=== PATIENT | male | born 2000 | race Two or more races ===

== ENCOUNTER 2018-09-15 00:26 | Emergency (ER) | payer OTHER ==
--- NOTE | 2018-09-15 00:33 | EDPHY ---
H & P Time Seen by Provider: 09/15/18 00:31 HPI/ROS: HPI CHIEF COMPLAINT: Hand laceration, right forearm laceration. HISTORY OF PRESENT ILLNESS: This is a 18-year-old male, he states that he was knocking on the window and sustained a laceration to his right hand and right forearm. He has a very small less than <0.5cm laceration to the right index finger. Additionally has TWO 3 cm lacerations mid forearm palmar side. He has otherwise neurovascular intact no other injuries. Bleeding was controlled by EMS. He arrives to the emergency without any complaints. He does report that he had alcohol tonight. States he was knocking on the glass and the glass broke. Past Medical History: Denies Past Surgical History: Denies Social History: Alcohol this evening. Denies drugs or tobacco. Family History: Denies ROS REVIEW OF SYSTEMS: 10 Systems were reviewed and negative with the exception of the elements mentioned in the history of present illness. Exam Constitutional triage nursing summary reviewed, vital signs reviewed, awake/ alert. Eyes normal conjunctivae and sclera, EOMI, PERRLA. HENT normal inspection, atraumatic, moist mucus membranes, no epistaxis, neck supple/ no meningismus, no raccoon eyes. Respiratory clear to auscultation bilaterally, normal breath sounds, no respiratory distress, no wheezing. Cardiovascular rate normal, regular rhythm, no murmur, no edema, distal pulses normal. Gastrointestinal soft, non-tender, no rebound, no guarding, normal bowel sounds, no distension, no pulsatile mass. Genitourinary no CVA tenderness. Musculoskeletal no midline vertebral tenderness, full range of motion, no calf swelling, no tenderness of extremities, no meningismus, good pulses, neurovascularly intact. Skin right upper extremity: Index finger dorsal aspect <0.5 cm laceration, no tendon invovlement, no arterial injury, neurovascular intact full range of motion of the hand and all digits. Additionally has a mid forearm laceration 3 cm palmar side there is neurovascular intact no tendon invovlement. No foreign bodies visualized on exam. Additionally there is a 2nd 3 cm forearm palmar side laceration. No tendon vomit no arterial injury. Neurologic awake, alert and oriented x 3, AAOx3, moves all 4 extremities equally, motor intact, sensory intact, CN II-XII intact, normal cerebellar, normal vision, normal speech. Psychiatric normal mood/affect. Heme/Lymph/Immune no lymphadenopathy. Differential Diagnosis: Includes but is not limited to in a particular order multiple lacerations, soft tissue injury, foreign body of glass,, tendon injury , arterial injury. Medical Decision Making: Plan for this patient x-ray right hand, x-ray right forearm. Rule out foreign bodies. Will clean his wounds copiously irrigate them. Will repair his lacerations. Re-evaluation: Patient reports to me his tetanus shot is up-to-date. Laceration Repair Procedure: Verbal Consent was obtained, Under sterile conditions, The patient had lidocaine with epinephrine used approximately 4ccs to local anesthetize the RIGHT FOREARM 3CM Laceration. The wound was copiously irrigated with sterile fluid, the wound was explored for foreign bodies there were none visualized, the wound was explored with a sterile glove to the base. There are no deep structures involved, including no arterial injury. THREE 5.O PROLENE interrupted Sutures were placed in this patient's laceration. He had good close approximation of the wound edges. He Tolerated this well. Laceration Repair Procedure: Verbal Consent was obtained, Under sterile conditions, The patient had lidocaine with epinephrine used approximately 4ccs to local anesthetize the RIGHT FOREARM 3CM Laceration. The wound was copiously irrigated with sterile fluid, the wound was explored for foreign bodies there were none visualized, the wound was explored with a sterile glove to the base. There are no deep structures involved, including no arterial injury. THREE 5.O PROELENE interrupted Sutures were placed in this patient's laceration. He had good close approximation of the wound edges. He Tolerated this well. Patient declined to have the right index finger laceration repaired. Very small. Good hemostasis. Not gaping. No tendon vomit. Patient understands have sutures removed in 12 days. Keep the wounds clean, dry and intact. Patient's x-rays reviewed the right hand and right forearm negative for trauma. I do not appreciate any foreign bodies. These images were interpreted by myself. Patient's wounds were copiously irrigated and cleaned. Source: Patient, EMS Constitutional: Initial Vital Signs Temperature (C) 36.8 C 09/15/18 00:30 Heart Rate 110 H 09/15/18 00:30 Respiratory Rate 20 09/15/18 00:30 Blood Pressure 132/87 H 09/15/18 00:30 O2 Sat (%) 96 09/15/18 00:30 O2 Delivery Mode Room Air Allergies/Adverse Reactions: No Known Allergies Allergy (Unverified 09/15/18 00:30) Home Medications: Medication Instructions Recorded NK [No Known Home Meds] 09/15/18 Departure - Departure Disposition: Home, Routine, Self-Care Clinical Impression: Arm laceration Qualifiers: Encounter type: initial encounter Laterality: right Qualified Code(s): S41.111A - Laceration without foreign body of right upper arm, initial encounter Finger laceration Qualifiers: Encounter type: initial encounter Finger: index finger Damage to nail status: without damage Foreign body presence: without foreign body Laterality: right Qualified Code(s): S61.210A - Laceration without foreign body of right index finger without damage to nail, initial encounter Condition: Good Instructions: Laceration (ED), Finger Laceration (ED) Additional Instructions: 1. Your sutures need to be removed in 12 days. 2. Please keep your wounds clean, and dry, protected. Pt med clear for usp. Referrals: Patient,NotPresent [Unknown] - As per Instructions
[2018-09-15 01:42] VITALS: BP 135/78
== END 2018-09-15 01:37 | disposition home or self-care (01) ==
DX: S61.411A Laceration without foreign body of right hand, initial encounter (principal); S51.811A Laceration without foreign body of right forearm, initial encounter; W25.XXXA Contact with sharp glass, initial encounter; Y92.9 Unspecified place or not applicable; Y99.9 Unspecified external cause status; Y93.9 Activity, unspecified